=== PATIENT | female | born 1970 | race African-American/Black ===

== ENCOUNTER 2017-09-09 23:45 | Emergency (ER) | payer SELFPAY ==
[~2017-09-09] VITALS: Ht 162.6 cm; Wt 75.0 kg
[~2017-09-09 23:45] MED LIST: AMLO5CAP PO; AUGM875T PO; CIPR500T4 PO; CROM5.2S; LISI-587 PO; SALI0.652; ZOFR4TAB3 SL
[2017-09-09 23:48] VITALS: BP 156/100; PULSE 84; RESP 16; TEMP 98.3; O2SAT 99
[2017-09-11] MEDS ORDERED: AMLO10 PO (13:39)
[2017-09-11] MEDS ORDERED: HYDR-3583 PO (13:39)
[2017-09-11] MEDS ORDERED: BACT800T5 PO (14:29)
== END 2017-09-10 01:35 | disposition left against medical advice (07) ==
LOC: NED 23:45
DX: M54.9 Dorsalgia, unspecified (principal)
CPT/HCPCS: 99281

== ENCOUNTER 2017-09-11 11:57 | Emergency (ER) | payer OTHER ==
[~2017-09-11] VITALS: Ht 162.6 cm; Wt 75.0 kg
[2017-09-11 11:58] VITALS: BP 153/107; PULSE 100; RESP 18; TEMP 98.4; O2SAT 97
[2017-09-11] MEDS ORDERED: AMLO10 PO (13:39)
[2017-09-11] MEDS ORDERED: HYDR-3583 PO (13:39)
--- NOTE | 2017-09-11 14:23 | PD ---
HPI Chief Complaint: Medical Clearance Time Seen by Provider: 13:38 Travel History International Travel<30 days: No Contact w/Intl Traveler<30days: No Traveled to known affect area: No History of Present Illness HPI 47-year-old female presents to the emergency department with complaint of a lump to her back. She says it has been there for 6 years but over the past couple weeks it has gotten bigger and has become painful. She denies fever, vomiting. Rates pain 10/10. Has been taking hydrocodone that she gets from pain management for chronic pain for symptom management. Has not tried any other treatments to alleviate her symptoms. No primary care provider. Pain management is Dr. Brito. Multiple allergies as listed on the chart. History of hypertension, cervical cancer, asthma, gout. Has no other medical complaints. No other modifying factors or associated signs and symptoms. PFSH Past Medical History Asthma: Yes Anxiety: Yes Cancer: Yes (cervical) Cardiovascular Problems: Yes (HTN) Chemotherapy: Yes (1988) Cerebrovascular Accident: Yes (TIA) Diminished Hearing: No Gastrointestinal Disorders: Yes Hypertension: Yes Reproductive: Yes (endometriosis) Respiratory: Yes (Asthma ) Immunizations Current: Yes Radiation Therapy: Yes (1988) Tetanus Vaccination: > 5 Years Influenza Vaccination: No ?: Not : 3 Para: 2 Miscarriage: 1 Tubal Ligation: Yes Past Surgical History Section: Yes Gynecologic Surgery: Yes (LEEP, CONE BIOPSY) Hysterectomy: Yes Social History Alcohol Use: No Tobacco Use: No (QUIT 6 YEARS AGO) Substance Use: No Allergies-Medications (Allergen,Severity, Reaction): Coded Allergies: iodixanol (Unverified Allergy, Severe, hypotension, 09/11/17) diatrizoate meglumine (Unverified Adverse Reaction, Severe, hypotension, ) gadobenic acid (Unverified Adverse Reaction, Severe, hypotension, 09/11/17) gadodiamide (Verified Adverse Reaction, Severe, hypotension, 09/11/17) gadoteridol (Verified Adverse Reaction, Severe, hypotension, 09/11/17) iohexol (Verified Adverse Reaction, Severe, hypotension, 09/11/17) naproxen (Verified Adverse Reaction, Severe, hypotension, 09/11/17) ferrous fumarate (Verified Adverse Reaction, Unknown, Hypotension, 09/11/17 ) ferrous sulfate (Verified Adverse Reaction, Unknown, Hypotension, 09/11/17) ferumoxytol (Verified Adverse Reaction, Unknown, Hypotension, 09/11/17) hydromorphone (Verified Adverse Reaction, Unknown, hypotension, 09/11/17) iron (Verified Adverse Reaction, Unknown, Hypotension, 09/11/17) multivitamin infusion, adult no.4 with vitamin K (Verified Adverse Reaction, Unknown, Hypotension, 09/11/17) multivitamin with iron,other minerals (Verified Adverse Reaction, Unknown , Hypotension, 09/11/17) prednisone (Verified Adverse Reaction, Unknown, hypotension, 09/11/17) Reported Meds & Prescriptions Reported Meds & Active Scripts Active Bactrim DS (Sulfamethoxazole-Trimethoprim) 800-160 Mg Tab 1 Tab PO BID 10 Days Reported Norvasc (Amlodipine Besylate) 10 Mg Tab 10 Mg PO DAILY Hydrocodone-Acetaminophen 10-325 mg Tab 1 Tab PO Q6H PRN Review of Systems Except as stated in HPI: all other systems reviewed are Neg Physical Exam Narrative GENERAL: Well-nourished, well-developed female patient, in no acute distress; afebrile, nontoxic-appearing SKIN: There is an indurated area to the right upper mid back which measures about 3 cm in diameter. It is fluctuant but there is no pointing or drainage. There is a zone of inflammation around it but no lymphangitis. HEAD: Atraumatic. Normocephalic. EYES: Pupils equal and round. No scleral icterus. No injection or drainage. ENT: Mucosa pink and moist. Airway patent. NECK: Trachea midline. CARDIOVASCULAR: Regular rate. RESPIRATORY: No accessory muscle use. GASTROINTESTINAL: Rounded. MUSCULOSKELETAL: No obvious deformities. No clubbing. No cyanosis. No edema. NEUROLOGICAL: Awake and alert. Oriented 3. No obvious cranial nerve deficits. Motor grossly within normal limits. Normal speech. PSYCHIATRIC: Appropriate mood and affect; insight and judgment normal. Data Data Last Documented VS Vital Signs Date Time Temp Pulse Resp B/P (MAP) Pulse Ox O2 Delivery O2 Flow Rate FiO2 09/11/17 13:35 89 16 09/11/17 11:58 98.4 153/107 (122) 97 Room Air Orders Orders Lidocaine 1% Inj (Xylocaine 1% Inj) (09/11/17 14:30) Wound Culture And Gram Stain (09/11/17 14:27) MDM Medical Decision Making Medical Screen Exam Complete: Yes Emergency Medical Condition: Yes Medical Record Reviewed: Yes Differential Diagnosis Abscess, sebaceous cyst, folliculitis Narrative Course 47-year-old female with an abscess to her right mid upper back. She is afebrile nontoxic pain. See my procedure note for incision and drainage. Wound culture pending. Bactrim prescribed for home. Patient has prescription for hydrocodone for pain. Instructed patient to return to the emergency department in 48 hours for packing removal. Instructed patient to follow up with primary care provider. Patient verbalizes understanding and agreement with treatment plan. Patient is medically cleared and stable for discharge. Discussed reasons to return to the emergency department. Patient agrees with treatment plan. The patients vital signs are stable and the patient is stable for outpatient follow-up and treatment. Patient discharged home, stable and in no acute distress. Procedures Procedure Narrative INCISION AND DRAINAGE OF ABSCESS: The area was prepped and was sterilely draped. A subcutaneous wheal of 1 % Xylocaine with a total number 1 mL was used to anesthetize the area properly. A number 11 scalpel was used to make a 1 -cm incision across the area of the abscess. The abscess was drained, complex loculations were broken down, and irrigated with normal saline. Cultures were obtained. Quarter inch iodoform packing was placed in the wound. Sterile dressing applied. Patient advised to have packing removed in two days. Diagnosis Primary Impression: Abscess of back Referrals: [facility] Primary Care Physician Patient Instructions: Abscess (ED), Abscess Follow-up (ED), Abscess Incision and Drainage (DC), General Instructions Additional Instructions: Complete full course of antibiotics Warm compresses to the affected area Keep area clean and dry Ibuprofen or Tylenol as directed and as needed for pain and inflammation Return to the emergency department in 48 hours for packing removal and recheck Follow-up with primary care provider Return to emergency department immediately with worsening of symptoms Med/Other Pt SpecificInfo: Prescription(s) given Scripts Sulfamethoxazole-Trimethoprim (Bactrim DS) 800-160 Mg Tab 1 TAB PO BID for Infection for 10 Days, #20 TAB 0 Refills Prov: Tana Mcbride 09/11/17 Disposition: 01 DISCHARGE HOME Condition: Stable Tana Mcbride Sep 11, 2017 14:23
[2017-09-11] MEDS ORDERED: BACT800T5 PO (14:29)
[2017-09-11] MEDS ORDERED: LIDOCAINE HCL 1% 20 ML VIAL INFIL ONE (14:30)
[2017-09-11 15:45] VITALS: BP 122/77; TEMP 97.8
== END 2017-09-11 15:45 | disposition home or self-care (01) ==
LOC: NEPD 11:57
DX: L02.212 Cutaneous abscess of back [any part, except buttock and flank] (principal); B96.20 Unspecified Escherichia coli [E. coli] as the cause of diseases classified elsewhere; I10 Essential (primary) hypertension; J45.909 Unspecified asthma, uncomplicated; M10.9 Gout, unspecified; F41.9 Anxiety disorder, unspecified; Z86.73 Personal history of transient ischemic attack (TIA), and cerebral infarction without residual deficits; Z87.42 Personal history of other diseases of the female genital tract; Z79.899 Other long term (current) drug therapy
CPT/HCPCS: 10061; 87070; 87077; 87186; 87205

== ENCOUNTER 2017-09-13 18:11 | Emergency (ER) | payer SELFPAY ==
[~2017-09-13 18:11] MED LIST changes: +AMLO10 PO; -AMLO5CAP PO; -AUGM875T PO; +BACT800T5 PO; -CIPR500T4 PO; -CROM5.2S; +HYDR-3583 PO; -LISI-587 PO; -SALI0.652; -ZOFR4TAB3 SL
[2017-09-13 18:13] VITALS: BP 165/101; PULSE 98; RESP 18; TEMP 98.4; O2SAT 99
[2017-09-13] MEDS ORDERED: TYLETAB34 PO (20:28)
--- NOTE | 2017-09-13 20:28 | PD ---
HPI Chief Complaint: Wound/Suture/Staple Re-Check Time Seen by Provider: 19:45 Travel History International Travel<30 days: No Contact w/Intl Traveler<30days: No Traveled to known affect area: No History of Present Illness HPI Patient is a 47-year-old female presented to the emergency department for a wound check. Patient had an I&D performed 2 days ago to her right upper back. She reports compliance with antibiotics, she denies any fevers, chills, drainage , increasing pain. She reports that it feels better after the initial I&D, symptom onset was gradual, severity is mild. Patient reports a pain 2 out of 10. She has no other complaints at this time. PFSH Past Medical History Asthma: Yes Anxiety: Yes Cancer: Yes (cervical) Chemotherapy: Yes (1988) Cerebrovascular Accident: Yes (TIA) Diminished Hearing: No Gastrointestinal Disorders: Yes Hypertension: Yes Reproductive: Yes (endometriosis) Respiratory: Yes (Asthma ) Immunizations Current: Yes Radiation Therapy: Yes (1988) ?: Not : 3 Para: 2 Miscarriage: 1 Tubal Ligation: Yes Past Surgical History Section: Yes Gynecologic Surgery: Yes (LEEP, CONE BIOPSY) Hysterectomy: Yes Social History Alcohol Use: No Tobacco Use: No (QUIT 6 YEARS AGO) Substance Use: No Allergies-Medications (Allergen,Severity, Reaction): Coded Allergies: iodixanol (Unverified Allergy, Severe, hypotension, 09/13/17) diatrizoate meglumine (Unverified Adverse Reaction, Severe, hypotension, ) gadobenic acid (Unverified Adverse Reaction, Severe, hypotension, 09/13/17) gadodiamide (Verified Adverse Reaction, Severe, hypotension, 09/13/17) gadoteridol (Verified Adverse Reaction, Severe, hypotension, 09/13/17) iohexol (Verified Adverse Reaction, Severe, hypotension, 09/13/17) naproxen (Verified Adverse Reaction, Severe, hypotension, 09/13/17) ferrous fumarate (Verified Adverse Reaction, Unknown, Hypotension, 09/13/17 ) ferrous sulfate (Verified Adverse Reaction, Unknown, Hypotension, 09/13/17) ferumoxytol (Verified Adverse Reaction, Unknown, Hypotension, 09/13/17) hydromorphone (Verified Adverse Reaction, Unknown, hypotension, 09/13/17) iron (Verified Adverse Reaction, Unknown, Hypotension, 09/13/17) multivitamin infusion, adult no.4 with vitamin K (Verified Adverse Reaction, Unknown, Hypotension, 09/13/17) multivitamin with iron,other minerals (Verified Adverse Reaction, Unknown , Hypotension, 09/13/17) prednisone (Verified Adverse Reaction, Unknown, hypotension, 09/13/17) Reported Meds & Prescriptions Reported Meds & Active Scripts Active Bactrim DS (Sulfamethoxazole-Trimethoprim) 800-160 Mg Tab 1 Tab PO BID 10 Days Reported Norvasc (Amlodipine Besylate) 10 Mg Tab 10 Mg PO DAILY Hydrocodone-Acetaminophen 10-325 mg Tab 1 Tab PO Q6H PRN Review of Systems Except as stated in HPI: all other systems reviewed are Neg Skin: Positive Other Physical Exam Narrative GENERAL: Well-developed, well-nourished, well-appearing female. Presenting in no acute distress. SKIN: Warm and dry. Incision to right upper back with packing in place, no surrounding erythema or induration. No warmth noted. No foul odor or drainage noted. HEAD: Normocephalic. EYES: No scleral icterus. No injection or drainage. NECK: Supple, trachea midline. No JVD or lymphadenopathy. CARDIOVASCULAR: Regular rate and rhythm without murmurs, gallops, or rubs. RESPIRATORY: Breath sounds equal bilaterally. No accessory muscle use. GASTROINTESTINAL: Abdomen soft, non-tender, nondistended. MUSCULOSKELETAL: No cyanosis, or edema. BACK: Nontender without obvious deformity. No CVA tenderness. Data Data Last Documented VS Vital Signs Date Time Temp Pulse Resp B/P (MAP) Pulse Ox O2 Delivery O2 Flow Rate FiO2 09/13/17 18:13 98.4 98 18 165/101 (122) 99 [facility] Medical Decision Making Medical Screen Exam Complete: Yes Emergency Medical Condition: Yes Medical Record Reviewed: Yes Interpretation(s) Vital Signs Date Time Temp Pulse Resp B/P (MAP) Pulse Ox O2 Delivery O2 Flow Rate FiO2 09/13/17 18:13 98.4 98 18 165/101 (122) 99 Differential Diagnosis Cellulitis versus abscess versus sebaceous cyst versus other Narrative Course Patient presented 48 hours after initial I&D for a wound recheck. Patient packing was in place, removed easily. There is no foul odor drainage noted. There was residual waxy material expressed from initial incision site. Patient tolerated well, bandage placed. Patient was advised that incision would heal on its own in a few days, she is encouraged to keep a clean dry dressing in place. She will continue antibiotics as previously prescribed, she is encouraged to follow-up with primary doctor or return to emergency department for any new worsening symptoms Diagnosis Primary Impression: Wound check, abscess Referrals: Primary Care Physician 1 week Patient Instructions: Abscess Follow-up (ED), General Instructions Additional Instructions: Keep incision clean and dry, change dressings daily and as needed for soiling Complete antibiotics as previously prescribed Take medications as needed and as directed for pain, do not drive or operate machinery while taking pain medication. Return to emergency department for any new worsening symptoms Med/Other Pt SpecificInfo: Prescription(s) given Scripts Acetaminophen-Codeine (Tylenol-Codeine #3) 300-30 mg Tab 1 TAB PO Q4H Y for PAIN, #7 TAB 0 Refills Prov: Radha Caruso 09/13/17 Disposition: 01 DISCHARGE HOME Condition: Stable Radha Caruso Sep 13, 2017 20:28
== END 2017-09-13 20:45 | disposition home or self-care (01) ==
LOC: NEPD 18:11
DX: Z09 Encounter for follow-up examination after completed treatment for conditions other than malignant neoplasm (principal); Z48.00 Encounter for change or removal of nonsurgical wound dressing
CPT/HCPCS: 99281

== ENCOUNTER 2017-11-18 11:41 | Observation (INO) | payer OTHER ==
[~2017-11-18] VITALS: Ht 162.6 cm; Wt 65.0 kg
[~2017-11-18 11:41] MED LIST changes: +TYLETAB34 PO
[2017-11-18 11:46] VITALS: BP 159/93; PULSE 73; RESP 20; TEMP 98.3; O2SAT 100
[2017-11-18 11:58] VITALS: BP 150/94; PULSE 75; RESP 18; O2SAT 100
--- NOTE | 2017-11-18 12:09 | PD ---
HPI Chief Complaint: Respiratory Symptoms Time Seen by Provider: 11:50 Travel History International Travel<30 days: No Contact w/Intl Traveler<30days: No Traveled to known affect area: No History of Present Illness HPI The patient is a 47-year-old female who presents to the emergency department from work for shortness of breath. The patient states she has had 2 weeks of intermittent chest pain described as pressure, anterior, nonradiating, and worse with exertion. Patient was at work earlier today and felt like she was short of breath, then developed chest pressure. She does note intermittent headaches, occasional dry nonproductive cough, but denies any recent fever or upper respiratory infection symptoms. The patient does have a history of hypertension, hyperlipidemia, and CVA at the age of 30. She denies any known history of diabetes, states she possibly is borderline, and quit smoking several years ago. The patient thinks she had a stress test in [place], [place], greater than 4-5 years ago that was negative. She denies any history of pulmonary embolism or DVT. Denies any significant edema to lower extremities. 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) Reproductive: Yes (endometriosis) Respiratory: Yes Immunizations Current: Yes Radiation Therapy: Yes (1988) ?: Not : 3 Para: 2 Miscarriage: 1 Tubal Ligation: Yes Past Surgical History Section: Yes Gynecologic Surgery: Yes (LEEP, CONE BIOPSY) Hysterectomy: Yes Social History Alcohol Use: No Tobacco Use: No (QUIT 6 YEARS AGO) Substance Use: No Allergies-Medications (Allergen,Severity, Reaction): Coded Allergies: iodixanol (Unverified Allergy, Severe, hypotension, 11/18/17) diatrizoate meglumine (Unverified Adverse Reaction, Severe, hypotension, ) gadobenic acid (Unverified Adverse Reaction, Severe, hypotension, 11/18/17) gadodiamide (Verified Adverse Reaction, Severe, hypotension, 11/18/17) gadoteridol (Verified Adverse Reaction, Severe, hypotension, 11/18/17) iohexol (Verified Adverse Reaction, Severe, hypotension, 11/18/17) naproxen (Verified Adverse Reaction, Severe, hypotension, 11/18/17) ferrous fumarate (Verified Adverse Reaction, Unknown, Hypotension, 11/18/17) ferrous sulfate (Verified Adverse Reaction, Unknown, Hypotension, 11/18/17) ferumoxytol (Verified Adverse Reaction, Unknown, Hypotension, 11/18/17) hydromorphone (Verified Adverse Reaction, Unknown, hypotension, 11/18/17) iron (Verified Adverse Reaction, Unknown, Hypotension, 11/18/17) multivitamin infusion, adult no.4 with vitamin K (Verified Adverse Reaction, Unknown, Hypotension, 11/18/17) multivitamin with iron,other minerals (Verified Adverse Reaction, Unknown , Hypotension, 11/18/17) prednisone (Verified Adverse Reaction, Unknown, hypotension, 11/18/17) Reported Meds & Prescriptions Reported Meds & Active Scripts Active Reported Norvasc (Amlodipine Besylate) 10 Mg Tab 10 Mg PO DAILY Hydrocodone-Acetaminophen 10-325 mg Tab 1 Tab PO Q6H PRN Review of Systems Except as stated in HPI: all other systems reviewed are Neg General / Constitutional: No: Fever HENT: Positive: Headaches Cardiovascular: Positive: Chest Pain or Discomfort, Dyspnea on exertion Respiratory: Positive: Shortness of Breath Gastrointestinal: No: Nausea, Vomiting, Abdominal Pain Musculoskeletal: Positive: Weakness, No: Edema Neurologic: Positive: Dizziness Physical Exam Narrative GENERAL: Awake, alert, nontoxic-appearing 47-year-old female who appears her stated age and is in no acute respiratory distress. SKIN: Focused skin assessment warm/dry. HEAD: Atraumatic. Normocephalic. EYES: No injection or drainage. ENT: No nasal bleeding or discharge. Mucous membranes pink and moist. NECK: Trachea midline. No JVD. CARDIOVASCULAR: Regular rate and rhythm. No murmur appreciated. RESPIRATORY: No accessory muscle use. Clear to auscultation. Breath sounds equal bilaterally. No wheezes, rales, or rhonchi noted. GASTROINTESTINAL: Abdomen soft, non-tender, nondistended. No rebound tenderness. MUSCULOSKELETAL: No obvious deformities. No clubbing. No cyanosis. No edema. NEUROLOGICAL: Awake and alert. No obvious cranial nerve deficits. Motor grossly within normal limits. Normal speech. PSYCHIATRIC: Appropriate mood and affect; insight and judgment normal. Data Data Last Documented VS Vital Signs Date Time Temp Pulse Resp B/P (MAP) Pulse Ox O2 Delivery O2 Flow Rate FiO2 11/18/17 12:24 100 Nasal Cannula 2.00 11/18/17 12:20 72 16 141/83 (102) 11/18/17 11:46 98.3 Orders Orders Electrocardiogram (11/18/17 12:05) Ckmb (Isoenzyme) Profile (11/18/17 12:05) Complete Blood Count With Diff (11/18/17 12:05) Comprehensive Metabolic Panel (11/18/17 12:05) Magnesium (Mg) (11/18/17 12:05) Prothrombin Time / Inr (Pt) (11/18/17 12:05) Act Partial Throm Time (Ptt) (11/18/17 12:05) Troponin I (11/18/17 12:05) Chest, Single Ap (11/18/17 12:05) Ecg Monitoring (11/18/17 12:05) Bilateral Bp Monitoring (11/18/17 12:05) Iv Access Insert/Monitor (11/18/17 12:05) Oximetry (11/18/17 12:05) Oxygen Administration (11/18/17 12:05) Aspirin Chew (Aspirin Chew) (11/18/17 12:15) Nitroglycerin 2% Oint (Nitroglycerin 2% (11/18/17 12:15) Sodium Chloride 0.9% Flush (Ns Flush) (11/18/17 12:15) Sodium Chlorid 0.9% 500 Ml Inj (Ns 500 M (11/18/17 12:15) CKMB (11/18/17 12:10) CKMB% (11/18/17 12:10) Admit Order (Ed Use Only) (11/18/17 13:29) Labs Laboratory Tests Test 11/18/17 12:10 White Blood Count 6.5 TH/MM3 Red Blood Count 5.02 MIL/MM3 Hemoglobin 13.8 GM/DL Hematocrit 42.0 % Mean Corpuscular Volume 83.6 FL Mean Corpuscular Hemoglobin 27.4 PG Mean Corpuscular Hemoglobin Concent 32.8 % Red Cell Distribution Width 14.0 % Platelet Count 208 TH/MM3 Mean Platelet Volume 9.6 FL Neutrophils (%) (Auto) 55.0 % Lymphocytes (%) (Auto) 34.9 % Monocytes (%) (Auto) 8.2 % Eosinophils (%) (Auto) 0.9 % Basophils (%) (Auto) 1.0 % Neutrophils # (Auto) 3.6 TH/MM3 Lymphocytes # (Auto) 2.3 TH/MM3 Monocytes # (Auto) 0.5 TH/MM3 Eosinophils # (Auto) 0.1 TH/MM3 Basophils # (Auto) 0.1 TH/MM3 CBC Comment DIFF FINAL Differential Comment Prothrombin Time 10.1 SEC Prothromb Time International Ratio 1.0 RATIO Activated Partial Thromboplast Time 24.3 SEC Blood Urea Nitrogen 18 MG/DL Creatinine 0.91 MG/DL Random Glucose 65 MG/DL Total Protein 7.6 GM/DL Albumin 3.9 GM/DL Calcium Level 9.1 MG/DL Magnesium Level 2.0 MG/DL Alkaline Phosphatase 165 U/L Aspartate Amino Transf (AST/SGOT) 24 U/L Alanine Aminotransferase (ALT/SGPT) 32 U/L Total Bilirubin 0.3 MG/DL Sodium Level 142 MEQ/L Potassium Level 4.6 MEQ/L Chloride Level 107 MEQ/L Carbon Dioxide Level 28.1 MEQ/L Anion Gap 7 MEQ/L Estimat Glomerular Filtration Rate 81 ML/MIN Total Creatine Kinase 179 U/L Creatine Kinase MB 1.7 NG/ML Troponin I LESS THAN 0.02 NG/ML MDM Medical Decision Making Medical Screen Exam Complete: Yes Emergency Medical Condition: Yes Medical Record Reviewed: Yes Interpretation(s) EKG reveals normal sinus rhythm with a rate of 68. Q-wave noted in lead III. Last Impressions Chest X-Ray 11/18/17 1205 Signed Impressions: Service Date/Time: Saturday, November 18, 2017 12:17 - CONCLUSION: No acute disease. Sebastian Sky MD Laboratory Tests Test 11/18/17 12:10 White Blood Count 6.5 TH/MM3 Red Blood Count 5.02 MIL/MM3 Hemoglobin 13.8 GM/DL Hematocrit 42.0 % Mean Corpuscular Volume 83.6 FL Mean Corpuscular Hemoglobin 27.4 PG Mean Corpuscular Hemoglobin Concent 32.8 % Red Cell Distribution Width 14.0 % Platelet Count 208 TH/MM3 Mean Platelet Volume 9.6 FL Neutrophils (%) (Auto) 55.0 % Lymphocytes (%) (Auto) 34.9 % Monocytes (%) (Auto) 8.2 % Eosinophils (%) (Auto) 0.9 % Basophils (%) (Auto) 1.0 % Neutrophils # (Auto) 3.6 TH/MM3 Lymphocytes # (Auto) 2.3 TH/MM3 Monocytes # (Auto) 0.5 TH/MM3 Eosinophils # (Auto) 0.1 TH/MM3 Basophils # (Auto) 0.1 TH/MM3 CBC Comment DIFF FINAL Differential Comment Prothrombin Time 10.1 SEC Prothromb Time International Ratio 1.0 RATIO Activated Partial Thromboplast Time 24.3 SEC Blood Urea Nitrogen 18 MG/DL Creatinine 0.91 MG/DL Random Glucose 65 MG/DL Total Protein 7.6 GM/DL Albumin 3.9 GM/DL Calcium Level 9.1 MG/DL Magnesium Level 2.0 MG/DL Alkaline Phosphatase 165 U/L Aspartate Amino Transf (AST/SGOT) 24 U/L Alanine Aminotransferase (ALT/SGPT) 32 U/L Total Bilirubin 0.3 MG/DL Sodium Level 142 MEQ/L Potassium Level 4.6 MEQ/L Chloride Level 107 MEQ/L Carbon Dioxide Level 28.1 MEQ/L Anion Gap 7 MEQ/L Estimat Glomerular Filtration Rate 81 ML/MIN Total Creatine Kinase 179 U/L Creatine Kinase MB 1.7 NG/ML Troponin I LESS THAN 0.02 NG/ML Differential Diagnosis Differential diagnosis includes acute coronary syndrome, cardiomyopathy, deconditioning, pulmonary embolism, bronchitis, pneumonia, URI, viral syndrome. Narrative Course IV was established, labs are drawn and sent, and the patient was placed on cardiac telemetry monitoring and continuous pulse oximetry monitoring. EKG was ordered and interpreted. Chest x-ray was obtained. The patient was administered aspirin 162 mg orally and Nitropaste 1 inch to the chest wall. The patient complains of chest tightness for several weeks, worse with exertion with shortness of breath. Patient has a history of asthma but her lung verduzco are clear, there is no audible wheezing. Patient does have risk factors including hypertension, hyperlipidemia, and history of CVA. Chest x-ray is negative. Initial troponin is less than 0.02. The patient has no wheezing or productive cough, she has exertional shortness of breath and chest tightness, therefore, will be a 23 hour observation to the chest pain center to rule out acute coronary syndrome. The patient is comfortable with this plan of care and disposition. Physician Communication Physician Communication The patient will be 23 hour observation to the chest pain center for serial cardiac enzymes and further evaluation by cardiology. Diagnosis Primary Impression: Chest pain Qualified Codes: R07.9 - Chest pain, unspecified Admitting Information Admitting Physician Requests: Observation Condition: Stable Dharmesh Wall MD November 18, 2017 12:09
[2017-11-18] MEDS ORDERED: ASPIRIN 81 MG CHEW TAB PO ONE (12:15)
[2017-11-18] MEDS ORDERED: SODIUM CHLORIDE 0.9% FLUSH 10 ML FLUSH IVF PRN (12:15)
[2017-11-18] MEDS ORDERED: NITROGLYCERIN 2% OINT 1 GM PACKET TOP ONE (12:15)
[2017-11-18] MEDS ORDERED: SODIUM CHLORID 0.9% 500 ML INJ 500 ML IV ONE (12:15)
[2017-11-18 12:20] VITALS: BP 141/83; PULSE 72; RESP 16; O2SAT 100
[2017-11-18 12:26] LABS: AUTOMATED NEUTROPHIL # 3.6 TH/MM3 (1.8-7.7); BASOPHIL # 0.1 TH/MM3 (0-0.2); EOSINOPHIL # 0.1 TH/MM3 (0-0.4); EOSINOPHIL % 0.9 % (0.0-4.0); HEMOGLOBIN 13.8 GM/DL (11.6-15.3); LYMPH % 34.9 % (9.0-44.0); LYMPHOCYTE # 2.3 TH/MM3 (1.0-4.8); MEAN CELL VOLUME 83.6 FL (80.0-100.0); MEAN CORPUSCULAR HEMOGLOBIN 27.4 PG (27.0-34.0); MEAN CORPUSCULAR HGB CONC 32.8 % (32.0-36.0); MEAN PLATELET VOLUME 9.6 FL (7.0-11.0); MONO % 8.2 % (0.0-8.0); MONOCYTE # 0.5 TH/MM3 (0-0.9); PLATELET COUNT 208 TH/MM3 (150-450); RED BLOOD COUNT 5.02 MIL/MM3 (4.00-5.30); WHITE BLOOD COUNT 6.5 TH/MM3 (4.0-11.0)
[2017-11-18 12:37] LABS: PROTHROMBIN TIME - PATIENT 10.1 SEC (9.8-11.6)
[2017-11-18 12:46] LABS: ALBUMIN 3.9 GM/DL (3.4-5.0); AST (GOT) 24 U/L (15-37); BICARBONATE 28.1 MEQ/L (21.0-32.0); BLOOD UREA NITROGEN 18 MG/DL (7-18); CALCIUM 9.1 MG/DL (8.5-10.1); CHLORIDE 107 MEQ/L (98-107); CREATININE 0.91 MG/DL (0.50-1.00); GLOMERULAR FILTRATION RATE 81 ML/MIN (>89); GLUCOSE,RANDOM 65 MG/DL (74-106); SODIUM (NA) 142 MEQ/L (136-145)
[2017-11-18 12:47] LABS: ALT (GPT) 32 U/L (10-53)
--- NOTE | 2017-11-18 12:49 | RADRPT ---
EXAM DATE/TIME: 11/18/2017 12:17 [facility] COMPARISON: CHEST SINGLE AP, January 27, 2016, 18:01. INDICATIONS : Chest pains with pressure, prior stroke. MEDICAL HISTORY : Stroke. SURGICAL HISTORY : None. ENCOUNTER: Initial ACUITY: 1 day PAIN SCORE: 7/10 LOCATION: Bilateral chest FINDINGS: A single view of the chest demonstrates the lungs to be symmetrically aerated without evidence of mas s, infiltrate or effusion. The cardiomediastinal contours are unremarkable. Osseous structures are intact. CONCLUSION: No acute disease. Sebastian Sky MD on November 18, 2017 at 12:48 Board Certified Radiologist. This report was verified electronically.
[2017-11-18 12:56] LABS: ALKALINE PHOSPHATASE 165 U/L (45-117); TOTAL BILIRUBIN ADULT 0.3 MG/DL (0.2-1.0); TOTAL PROTEIN 7.6 GM/DL (6.4-8.2); TROPONIN I LESS THAN 0.02 NG/ML (0.02-0.05)
[2017-11-18 14:39] VITALS: BP 136/80
[2017-11-18] MEDS ORDERED: ONDANSETRON HCL 4 MG/2 ML VIAL IV PUSH PRN (14:45)
[2017-11-18] MEDS ORDERED: ACETAMINOPHEN 500 MG CPLT PO PRN (14:45)
--- NOTE | 2017-11-18 15:34 | TR ---
Date Performed: 11/18/2017 Time Performed: 14:58:52 DOCTOR: Diego Kohli DRUG LIST: CLINICAL HISTORY: CHEST PAIN RULE OUT ACUTE CORONARY SYNDROME REASON FOR TEST: Chest pain R/O ACS REASON FOR ENDING: OBSERVATION: CONCLUSION: MODIFIED DARELL PROTOCOL HER CONSTANT CHEST DISCOMFORT DID NOT SORSEN DURING THE STRE SS TEST. TEST STOPPED AFTER EXCEEDING GOAL HR SECONDARY TO SOB AND LEG FATIGUE.Maximum JB=104 % Max H R Achieved=86.0% Maximum BG=338/90 Total Exercise Time=4:37 COMMENTS: Conclusion: Normal treadmill exercise. No evidence of ischemia.
--- NOTE | 2017-11-18 15:41 | HHI.DCPOC ---
Discharge Care Plan Diagnosis: (1) Chest pain (2) Hypertension (3) Hyperlipidemia Goals to Promote Your Health -K-V-U-C-U-S-S- -G-O-I-N-G- -B-A-C-K- -O-N- -V-S-M-J-Y-F-T-E-R-O-L- -Z-I-L-A-L-A-T-I-O-N-S- -W-I-T-H- -Y-O-U-R- -I-Z-D-B-O-P-I-A-N-.- * To prevent worsening of your condition and complications * To maintain your health at the optimal level Directions to Meet Your Goals Take your medications as prescribed Follow your dietary instruction Follow activity as directed Keep your appointments as scheduled Take your immunizations and boosters as scheduled If your symptoms worsen call your PCP, if no PCP go to Urgent Care Center or Emergency Room Smoking is Dangerous to Your Health. Avoid second hand smoke Call the 24-hour hour crisis hotline for domestic abuse at Wayne Walker November 18, 2017 15:41
--- NOTE | 2017-11-18 15:53 | HHI.HP ---
HPI Primary Care Physician No Primary Care Physician Chief Complaint Chest pain History of Present Illness This is a 47-year-old female that presents to ED with history of hypertension, hyperlipidemia or not taken medication for some time, CVA at age 30, chronic back pain, cervical cancer at age 18 with radiation and chemotherapy at that time. Patient presents with complaint of having one-month constant chest discomfort that she describes as pressure. It is more when she talks a lot. Hurts more with certain movements. She at times has been short of breath. No nausea or diaphoresis. She has not sought treatment for this discomfort. States she had a stress test about 10 years ago and that was okay. She was a smoker but quit in 2007. Denies recent travel. Denies fevers or chills. Denies recent illness. Review of Systems General: Patient denies fevers, chills,and recent travel. HEENT: Patient denies headache, sore throat, difficulty swallowing. Cardiovascular: Has the chest discomfort as mentioned above. Denies sensation of heart beating rapidly or irregularly. No syncope. Denies diaphoresis. Respiratory: Occasional mild shortness of breath. Denies inspirational chest discomfort. Denies coughing wheezing or hemoptysis. GI: Patient denies nausea, vomiting, diarrhea, abdominal pain, bloody stools. Musculoskeletal: Patient denies joint pain or edema. Denies calf pain or edema. Neurovascular: Patient denies numbness, tingling, weakness in extremities. Denies headache. Endocrine: Denies polyuria and polydipsia. Hematologic: Denies easy bruising. Skin: Denies rash or itching. Past Family Social History Allergies: Coded Allergies: iodixanol (Unverified Allergy, Severe, hypotension, 11/18/17) diatrizoate meglumine (Unverified Adverse Reaction, Severe, hypotension, ) gadobenic acid (Unverified Adverse Reaction, Severe, hypotension, 11/18/17) gadodiamide (Verified Adverse Reaction, Severe, hypotension, 11/18/17) gadoteridol (Verified Adverse Reaction, Severe, hypotension, 11/18/17) iohexol (Verified Adverse Reaction, Severe, hypotension, 11/18/17) naproxen (Verified Adverse Reaction, Severe, hypotension, 11/18/17) ferrous fumarate (Verified Adverse Reaction, Unknown, Hypotension, 11/18/17) ferrous sulfate (Verified Adverse Reaction, Unknown, Hypotension, 11/18/17) ferumoxytol (Verified Adverse Reaction, Unknown, Hypotension, 11/18/17) hydromorphone (Verified Adverse Reaction, Unknown, hypotension, 11/18/17) iron (Verified Adverse Reaction, Unknown, Hypotension, 11/18/17) multivitamin infusion, adult no.4 with vitamin K (Verified Adverse Reaction, Unknown, Hypotension, 11/18/17) multivitamin with iron,other minerals (Verified Adverse Reaction, Unknown , Hypotension, 11/18/17) prednisone (Verified Adverse Reaction, Unknown, hypotension, 11/18/17) Past Medical History Hypertension. Hyperlipidemia but has not taken medications for some time. CVA at age 30. Chronic back pain. Cervical cancer at age 18 with radiation and chemotherapy. Past history of tobacco abuse but quit 2007. Denies diabetes and known CAD. Past Surgical History . A cone biopsy. Hysterectomy. Reported Medications Reported Meds & Active Scripts Active Reported Norvasc (Amlodipine Besylate) 10 Mg Tab 10 Mg PO DAILY Hydrocodone-Acetaminophen 10-325 mg Tab 1 Tab PO Q6H PRN Active Ordered Medications Current Medications Medications (Trade) Dose Ordered Sig/Allison Route Start Time Stop Time Status Last Admin (NS Flush) 2 ml UNSCH PRN IVF 11/18/17 12:15 11/18/17 12:19 (Tylenol) 500 mg Q4H PRN PO 11/18/17 14:45 (Zofran Inj) 4 mg Q6H PRN IV PUSH 11/18/17 14:45 Family History Denies family history of CAD. Social History Quit smoking cigarettes in 2007. Prior to that she smoked one half pack a series daily for 20 years. Denies illicit drug use. Has occasional alcohol. Physical Exam Vital Signs Vital Signs Date Time Temp Pulse Resp B/P (MAP) Pulse Ox O2 Delivery O2 Flow Rate FiO2 11/18/17 14:39 66 21 136/80 (98) 99 Nasal Cannula 2.00 11/18/17 12:24 100 Nasal Cannula 2.00 11/18/17 12:20 72 16 141/83 (102) 100 11/18/17 12:20 72 16 141/83 (102) 100 Room Air 11/18/17 11:58 75 18 150/94 (112) 100 Room Air 11/18/17 11:58 75 18 150/94 (112) 100 Room Air 11/18/17 11:46 98.3 73 20 159/93 (115) 100 Physical Exam GENERAL: This is a well-nourished, well-developed patient, in no apparent distress. Patient speaks in clear complete sentences. Patient is pleasant. HEENT: Head is atraumatic and normocephalic. Neck is supple without lymphadenopathy and trachea is midline. No JVD or carotid bruits. CARDIOVASCULAR: Regular rate and rhythm without murmurs, gallops, or rubs. RESPIRATORY: Clear to auscultation. Breath sounds equal bilaterally. No wheezes , rales, or rhonchi. Chest wall is tender. No use of accessory muscles. GASTROINTESTINAL: Abdomen is nontender, nondistended. Abdomen soft. No obvious pulsatile mass or bruit. No CVA tenderness. Strong femoral pulses bilaterally. Normal bowel sounds in all quadrants. MUSCULOSKELETAL: Patient is moving upper and lower extremities freely. No calf tenderness or edema, no Homans sign. Strong pulses in upper and lower extremities. NEUROLOGICAL: Patient is alert and oriented. Cranial nerves 2-12 are grossly intact. No focal deficits and speech is clear. SKIN: No rash and turgor is normal. Laboratory Laboratory Tests Test 11/18/17 12:10 White Blood Count 6.5 Red Blood Count 5.02 Hemoglobin 13.8 Hematocrit 42.0 Mean Corpuscular Volume 83.6 Mean Corpuscular Hemoglobin 27.4 Mean Corpuscular Hemoglobin Concent 32.8 Red Cell Distribution Width 14.0 Platelet Count 208 Mean Platelet Volume 9.6 Neutrophils (%) (Auto) 55.0 Lymphocytes (%) (Auto) 34.9 Monocytes (%) (Auto) 8.2 Eosinophils (%) (Auto) 0.9 Basophils (%) (Auto) 1.0 Neutrophils # (Auto) 3.6 Lymphocytes # (Auto) 2.3 Monocytes # (Auto) 0.5 Eosinophils # (Auto) 0.1 Basophils # (Auto) 0.1 CBC Comment DIFF FINAL Differential Comment Prothrombin Time 10.1 Prothromb Time International Ratio 1.0 Activated Partial Thromboplast Time 24.3 Blood Urea Nitrogen 18 Creatinine 0.91 Random Glucose 65 Total Protein 7.6 Albumin 3.9 Calcium Level 9.1 Magnesium Level 2.0 Alkaline Phosphatase 165 Aspartate Amino Transf (AST/SGOT) 24 Alanine Aminotransferase (ALT/SGPT) 32 Total Bilirubin 0.3 Sodium Level 142 Potassium Level 4.6 Chloride Level 107 Carbon Dioxide Level 28.1 Anion Gap 7 Estimat Glomerular Filtration Rate 81 Total Creatine Kinase 179 Creatine Kinase MB 1.7 Troponin I LESS THAN 0.02 Result Diagram: 11/18/17 1210 11/18/17 1210 Imaging Last 72 hours Impressions Chest X-Ray 11/18/17 1205 Signed Impressions: Service Date/Time: Saturday, November 18, 2017 12:17 - CONCLUSION: No acute disease. Sebastian Sky MD Course Initial EKG is sinus rhythm without significant ST segment depressions or elevations. Caprini VTE Risk Assessment Caprini VTE Risk Assessment: No/Low Risk (score <= 1) Caprini Risk Assessment Model Point Value = 1 Point Value = 2 Point Value = 3 Point Value = 5 Age 41-60 Minor surgery BMI > 25 kg/m2 Swollen legs Varicose veins or History of unexplained or recurrent spontaneous Oral contraceptives or hormone replacement Sepsis (< 1 month) Serious lung disease, including pneumonia (< 1 month) Abnormal pulmonary function Acute myocardial infarction Congestive heart failure (< 1 month) History of inflammatory bowel disease Medical patient at bed rest Age 61-74 Arthroscopic surgery Major open surgery (> 45 min) Laparoscopic surgery (> 45 min) Malignancy Confined to bed (> 72 hours) Immobilizing plaster cast Central venous access Age >= 75 History of VTE Family history of VTE Factor V Leiden Prothrombin [id number] Lupus anticoagulant Anticardiolipin antibodies Elevated serum homocysteine Heparin-induced thrombocytopenia Other congenital or acquired thrombophilia Stroke (< 1 month) Elective arthroplasty Hip, pelvis, or leg fracture Acute spinal cord injury (< 1 month) Prophylaxis Regimen Total Risk Factor Score Risk Level Prophylaxis Regimen 0-1 Low Early ambulation 2 Moderate Order ONE of the following: *Sequential Compression Device (SCD) *Heparin 5000 units SQ BID 3-4 Higher Order ONE of the following medications: *Heparin 5000 units SQ TID *Enoxaparin/Lovenox 40 mg SQ daily (WT < 150 kg, CrCl > 30 mL/min) *Enoxaparin/Lovenox 30 mg SQ daily (WT < 150 kg, CrCl > 10-29 mL/min) *Enoxaparin/Lovenox 30 mg SQ BID (WT < 150 kg, CrCl > 30 mL/min) AND/OR *Sequential Compression Device (SCD) 5 or more Highest Order ONE of the following medications: *Heparin 5000 units SQ TID (Preferred with Epidurals) *Enoxaparin/Lovenox 40 mg SQ daily (WT < 150 kg, CrCl > 30 mL/min) *Enoxaparin/Lovenox 30 mg SQ daily (WT < 150 kg, CrCl > 10-29 mL/min) *Enoxaparin/Lovenox 30 mg SQ BID (WT < 150 kg, CrCl > 30 mL/min) AND *Sequential Compression Device (SCD) Assessment and Plan Assessment and Plan * Chest pain: Her symptoms appear atypical. She has had discomfort in her chest for a month constantly and first troponin and EKG are okay. Patient has been seen by Dr. Kohli of cardiology in the chest pain center and will undergo a Haroon protocol ETT. She will be discharged home if her stress test is nonischemic with instructions to follow-up with PCP and return to ED for interval issues. * Hypertension: Continue medication. * Hyperlipidemia: Patient has been advised to speak with PCP to be placed back on statin therapy. Patient is stable at this time. She is agreeable to this plan. Wayne Walker November 18, 2017 15:53
[2017-11-18 16:18] VITALS: BP 139/80; PULSE 73; RESP 18; TEMP 98.4; O2SAT 99
--- NOTE | 2017-11-19 14:26 | EKG ---
Date Performed: 11/18/2017 Time Performed: 12:13:22 PTAGE: 47 years EKG: Sinus rhythm NORMAL ECG Since the PREVIOUS TRACING , no significant change noted PREVIOUS TRACIN01/27/2016 17.41 DOCTOR: Adriana Carter Interpretating Date/Time 11/19/2017 14:20:40
== END 2017-11-18 17:39 | disposition home or self-care (01) ==
LOC: NEPD 11:41 → NEDA 13:31 → NEPFCDU 14:50
DX: R07.89 Other chest pain (principal); R06.02 Shortness of breath; I10 Essential (primary) hypertension; E78.5 Hyperlipidemia, unspecified; M54.9 Dorsalgia, unspecified; G89.29 Other chronic pain; Z86.73 Personal history of transient ischemic attack (TIA), and cerebral infarction without residual deficits; Z85.41 Personal history of malignant neoplasm of cervix uteri; Z87.891 Personal history of nicotine dependence; Z79.899 Other long term (current) drug therapy
CPT/HCPCS: 71045; 80053; 82550; 82552; 83735; 84484; 85025; 85610; 85730; 93005; 93017; 96360; 96361; 99285; G0378; J7040

== ENCOUNTER 2017-12-14 07:10 | Emergency (ER) | payer SELFPAY ==
[~2017-12-14] VITALS: Ht 162.6 cm; Wt 70.0 kg
[~2017-12-14 07:10] MED LIST changes: -BACT800T5 PO; -TYLETAB34 PO
[2017-12-14 07:13] VITALS: BP 176/98; PULSE 99; RESP 16; TEMP 97.9; O2SAT 96
[2017-12-14] MEDS ORDERED: OSEL75 PO (07:25)
--- NOTE | 2017-12-14 07:29 | PD ---
HPI Chief Complaint: Cold / Flu Symptoms Time Seen by Provider: 07:17 Travel History International Travel<30 days: No Contact w/Intl Traveler<30days: No Traveled to known affect area: No History of Present Illness HPI 47-year-old female presents emergency department for evaluation of body aches, chills, one episode of nonbloody diarrhea, sore throat, and generally not feeling well over the last day. Says that she had a fever but is well controlled with Tylenol. She admits to post nasal drip. She denies chest pain or shortness of breath. Denies nausea or vomiting. Denies cough or congestion. She says that she had a sick contact at work and likely became sick from her. 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) Reproductive: Yes (endometriosis) Respiratory: Yes Immunizations Current: Yes Radiation Therapy: Yes (1988) : 3 Para: 2 Miscarriage: 1 Tubal Ligation: Yes Past Surgical History Section: Yes Gynecologic Surgery: Yes (LEEP, CONE BIOPSY) Hysterectomy: Yes Social History Alcohol Use: No Tobacco Use: No (QUIT 6 YEARS AGO) Substance Use: No Allergies-Medications (Allergen,Severity, Reaction): Coded Allergies: iodixanol (Unverified Allergy, Severe, hypotension, 11/18/17) diatrizoate meglumine (Unverified Adverse Reaction, Severe, hypotension, ) gadobenic acid (Unverified Adverse Reaction, Severe, hypotension, 11/18/17) gadodiamide (Verified Adverse Reaction, Severe, hypotension, 11/18/17) gadoteridol (Verified Adverse Reaction, Severe, hypotension, 11/18/17) iohexol (Verified Adverse Reaction, Severe, hypotension, 11/18/17) naproxen (Verified Adverse Reaction, Severe, hypotension, 11/18/17) ferrous fumarate (Verified Adverse Reaction, Unknown, Hypotension, 11/18/17) ferrous sulfate (Verified Adverse Reaction, Unknown, Hypotension, 11/18/17) ferumoxytol (Verified Adverse Reaction, Unknown, Hypotension, 11/18/17) hydromorphone (Verified Adverse Reaction, Unknown, hypotension, 11/18/17) iron (Verified Adverse Reaction, Unknown, Hypotension, 11/18/17) multivitamin infusion, adult no.4 with vitamin K (Verified Adverse Reaction, Unknown, Hypotension, 11/18/17) multivitamin with iron,other minerals (Verified Adverse Reaction, Unknown , Hypotension, 11/18/17) prednisone (Verified Adverse Reaction, Unknown, hypotension, 11/18/17) Reported Meds & Prescriptions Reported Meds & Active Scripts Active Tamiflu (Oseltamivir Phosphate) 75 Mg Cap 75 Mg PO BID 5 Days Reported Norvasc (Amlodipine Besylate) 10 Mg Tab 10 Mg PO DAILY Hydrocodone-Acetaminophen 10-325 mg Tab 1 Tab PO Q6H PRN Review of Systems Except as stated in HPI: all other systems reviewed are Neg Physical Exam Narrative GENERAL: Well-nourished, well-developed patient, in NAD SKIN: Focused skin assessment warm/dry. No rashes or lesions. HEAD: Normocephalic. Atraumatic. EYES: No scleral icterus. No injection or drainage. PERRLA, EOMI Left tympanic membrane mildly bulging with mild erythema without perforation. Right tympanic membrane mild erythema. THROAT: No pharyngeal injection, exudates, or tonsillar hypertrophy. Airway is patent. NECK: Supple, trachea midline. No JVD or lymphadenopathy. No meningismus. CARDIOVASCULAR: Regular rate and rhythm without murmurs, gallops, or rubs. RESPIRATORY: Breath sounds equal bilaterally. No accessory muscle use. No wheezes, rales, or rhonchi MUSCULOSKELETAL: No cyanosis, or edema. BACK: Nontender without obvious deformity. No CVA tenderness. Data Data Last Documented VS Vital Signs Date Time Temp Pulse Resp B/P (MAP) Pulse Ox O2 Delivery O2 Flow Rate FiO2 12/14/17 07:13 97.9 99 16 176/98 (124) 96 Orders Orders Ed Discharge Order (12/14/17 07:30) Ibuprofen (Motrin) (12/14/17 07:45) MDM Medical Decision Making Medical Screen Exam Complete: Yes Emergency Medical Condition: Yes Differential Diagnosis Influenza, viral syndrome, upper respiratory infection Narrative Course 47-year-old female presents emergency department for evaluation of body aches, chills, one episode of nonbloody diarrhea, sore throat, and generally not feeling well over the last day. Says that she had a fever but has since broken with Tylenol. She denies chest pain or shortness of breath. Denies nausea or vomiting. Denies cough or congestion. She says that she had a sick contact at work and likely became sick from her. Vital signs are stable. We discussed testing versus treatment. Patient demonstrates signs and symptoms of the influenza virus. Advised that testing may be negative although she may actually have the virus. She opted for treatment with Tamiflu. She is advised to have adequate fluid intake and proper nutrition. Tylenol for fever. I recommended she avoid others when possible as she is contagious. Diagnosis Primary Impression: Viral syndrome Referrals: [facility] Forms: Tests/Procedures, Work Release Enter return to work date: December 17, 2017 Additional Instructions: You may alternate tylenol and motrin for fever, per package instructions. Use cooling techniques such as placing cool rags in the armpits or legs to reduce fever. Take all medications as prescribed. Follow up with your primary physician within 2-3 days. Return to the emergency department for worsening or uncontrolled fever. Scripts Oseltamivir (Tamiflu) 75 Mg Cap 75 MG PO BID for Mgmt Viral Infection for 5 Days, #10 CAP 0 Refills Prov: Maddy Quiroz MD 12/14/17 Disposition: 01 DISCHARGE HOME Condition: Stable Annie Quiroz December 14, 2017 07:29
[2017-12-14] MEDS ORDERED: IBUPROFEN 400 MG TAB PO ONE (07:45)
== END 2017-12-14 07:43 | disposition home or self-care (01) ==
LOC: NEPD 07:10
DX: B34.9 Viral infection, unspecified (principal); F41.9 Anxiety disorder, unspecified; I10 Essential (primary) hypertension; J45.909 Unspecified asthma, uncomplicated; Z86.73 Personal history of transient ischemic attack (TIA), and cerebral infarction without residual deficits; Z85.41 Personal history of malignant neoplasm of cervix uteri; Z87.891 Personal history of nicotine dependence
CPT/HCPCS: 99283